=== PATIENT | male | born 2005 | race Caucasian/White ===

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

== ENCOUNTER → 2023-01-30 14:24 | Outpatient (CLI) | payer BC, SELFPAY ==
[2023-01-30 13:41] LABS: Coronavirus 19, PCR Not Detected (NotDetected); Influenza A, PCR Not Detected (NotDetected); Influenza B, PCR Not Detected (NotDetected)
== END ==
PROVIDERS: PCP Internal Medicine; Visit Provider Internal Medicine
DX: J06.9 Acute upper respiratory infection, unspecified (principal)
CPT/HCPCS: 87636

== ENCOUNTER → 2023-02-04 15:08 | Outpatient (CLI) | payer BC, SELFPAY ==
--- NOTE | 2023-02-04 15:12 | XR_ITS ---
FINAL REPORT CLINICAL HISTORY: flank pain, possible renal stone FINDINGS: Flat and upright views of the abdomen were obtained. There is a nonspecific, nonobstructive bowel gas pattern. No free air is identified. There is moderate stool throughout the colon. No abnormal calcifications are seen. No acute osseous abnormality. IMPRESSION: Moderate stool. No abnormal calcifications identified. Reviewed, Interpreted and Dictated by Dima Clements III, MD Transcribed by Nilda Dugan Authenticated and [facility]
== END ==
LOC: RAD 15:09
PROVIDERS: PCP Nurse Practitioner Family; Visit Provider Nurse Practitioner Family
DX: R10.9 Unspecified abdominal pain (principal); R31.9 Hematuria, unspecified; N20.0 Calculus of kidney
CPT/HCPCS: 74019

== ENCOUNTER → 2023-02-04 23:29 | Outpatient (CLI) | payer BC, SELFPAY ==
[2023-02-04 17:22] LABS: Alanine Aminotransferase 80 U/L (12-78); Albumin Level 4.6 g/dl (3.5-5.0); Albumin/Globulin Ratio 1.7 (1.1-1.8); Alkaline Phosphatase 100 U/L (38-126); Anion Gap 15.1 mEq/L (5-15); Aspartate Amino Transferase 43 U/L (17-59); Bilirubin,Total 0.2 mg/dl (0.2-1.3); Blood Urea Nitrogen 22 mg/dl (9-20); Calcium 9.6 mg/dl (8.4-10.2); Carbon Dioxide 27 mmol/L (22.0-30.0); Chloride 105 mmol/L (98-107); Estimated Glomerular Filt Rate 109 ml/min (>60); GFR (African American) 132 ML/MIN (>60); Globulin 2.7 g/dL (1.3-3.2); Glucose 107 mg/dl (74-100); Potassium 4.1 mmoL/L (3.5-5.1); Sodium 143 mmol/L (136-145); Total Protein,Serum 7.3 g/dl (6.3-8.2); Uric Acid 4.9 mg/dl (3.5-8.5)
[2023-02-04 17:28] LABS: C-Reactive Protein 1.4 mg/L (0-4)
[2023-02-04 17:43] LABS: Basophils % 0.6 % (0.1-2.0); Eosinophils # 0.2 K/mm3 (0.0-0.4); Eosinophils % 3.5 % (0.1-12.0); Hematocrit 52.2 % (42.0-52.0); Hemoglobin 16.8 g/dL (14.1-18.0); Lymphocytes # 1.3 K/mm3 (0.7-4.5); Lymphocytes % 21.7 % (10-50); Mean Corpuscular HGB Conc 32.2 g/dL (31.8-35.4); Mean Corpuscular Hemoglobin 29.7 pg (27.0-31.2); Mean Platelet Volume 8.7 fl (7.4-10.4); Monocytes # 0.5 K/mm3 (0.1-1.0); Monocytes % 8.8 % (1.7-9.3); Neutrophils % 65.5 % (37.0-80.0); Platelet Count 229 K/mm3 (142-424); Red Blood Count 5.68 M/mm3 (4.60-6.20); Red Cell Distribution Width 13.7 % (11.5-17.5); White Blood Count 6.1 K/mm3 (4.5-13.0)
== END ==
PROVIDERS: PCP Obstetrics & Gynecology; Visit Provider Nurse Practitioner Family
DX: R10.9 Unspecified abdominal pain (principal); R31.9 Hematuria, unspecified
CPT/HCPCS: 80053; 84550; 85025; 86140; 87086

== ENCOUNTER → 2023-05-02 14:06 | Outpatient (CLI) | payer BC, SELFPAY | PROVIDERS: PCP Nurse Practitioner Family; Visit Provider Nurse Practitioner Family | DX: J02.9 Acute pharyngitis, unspecified (principal) | CPT/HCPCS: 87070 ==

== ENCOUNTER → 2023-05-10 13:22 | Outpatient (CLI) | payer BC, SELFPAY ==
--- NOTE | 2023-05-10 13:23 | US_ITS ---
FINAL REPORT CLINICAL HISTORY: left leg mass FINDINGS: Limited sonographic images of the left lower leg were obtained. No mass or fluid collection is seen at the area of interest. IMPRESSION: No mass or fluid collection. Reviewed, Interpreted and Dictated by Osei Irvin MD Transcribed by Jacqueline Escobar Authenticated and . [facility]
== END ==
LOC: RAD 13:23
PROVIDERS: PCP Nurse Practitioner Family; Visit Provider Nurse Practitioner Family
DX: R22.42 Localized swelling, mass and lump, left lower limb (principal)
CPT/HCPCS: 76882

== ENCOUNTER 2024-02-12 08:40 | Outpatient (CLI) | payer BC, SELFPAY ==
[2024-02-17 07:49] LABS: Oxcarbazepine 42 ug/mL (10-35)
== END 2024-02-12 23:59 | disposition home or self-care (01) ==
LOC: LAB 08:42
PROVIDERS: Psychiatry & Neurology Neurology; PCP Nurse Practitioner Family
DX: R56.9 Unspecified convulsions (principal)
CPT/HCPCS: 36415; 80183

== ENCOUNTER 2024-04-24 08:06 | Emergency (ER) | payer BC, SELFPAY ==
[2024-04-24 08:27] VITALS: BP 142/90; PULSE 96; RESP 18; TEMP 36.9; O2SAT 97; BMI 33.2
--- NOTE | 2024-04-24 08:30 | EXP.UTC ---
Discharge Plan Disposition Patient Disposition: Home, Self-Care Condition: Good Prescriptions Prescriptions: New azithromycin [Zithromax] 250 mg tablet 250 mg PO UD DOSE PK Qty: 6 0RF Rx Instructions: Take two (2) tablets today, then one (1) tablet days #2 thru #5 aihhmgmldtlphyq-zibkufmhl-LE [Bromfed DM] 2-30-10 mg/5 mL Syrup 5 ml PO Q6H PRN (Reason: Cough) Qty: 240 0RF oseltamivir [Tamiflu] 75 mg capsule 75 mg PO BID 5 Days Qty: 10 0RF No Action oxcarbazepine 600 mg tablet 1,200 mg PO .COMPLEX Patient Comments: TAKE 2 TABLETS BY MOUTH IN THE MORNING AND 3 IN THE EVENING Rx Instructions: 1,200 mg orally 2tabs qam and 3 tabs q evening; Referrals Follow up/Referrals: Rhonda Ayers APRN [Primary Care Provider] - See instructions Activity Restrictions/Add. Instructions Additional Instructions/Restrictions: Drink plenty of fluids. Take tylenol or ibuprofen for pain or fever. Take the medications as directed. Follow up with your regular doctor. GO TO THE ER FOR ANY WORSENING SYMPTOMS Clinical Impressions Clinical Impression: Pharyngitis, Acute viral syndrome Instructions Patient Instructions: Sore Throat, DI for Pharyngitis/Tonsillopharyngitis -- Adult Print Language Print Language: Mongolian Discharge ED Provider: Skyler Holder [facility] [place] HPI General Stated complaint: fever, congestion Mode of Arrival: Ambulatory Source of Information: Patient Time Seen by Provider: 04/24/24 08:21 Description of Symptoms (Recalled from Triage Doc. by RN): FEVER, SORE THROAT, CONGESTION, COUGH, BODY ACHES HEENT Symptoms (Recalled from RN notes): Yes Resp Symptoms (Recalled from RN notes): Yes Skin Symptoms (Recalled from RN notes): No MS Symptoms (Recalled from RN notes): No Functional Status (Recalled from RN notes): WNL Related Data Home Medications ?Medication ?Instructions ?Recorded ?Confirmed oxcarbazepine 600 mg tablet 1,200 mg PO .COMPLEX 09/19/22 04/24/24 Previous Rx's ?Medication ?Instructions ?Recorded azithromycin 250 mg tablet 250 mg PO UD DOSE PK #6 tabs 04/24/24 (Zithromax) ugjnzalnpygfhen-acmlzfuislypept-QJ 5 ml PO Q6H PRN Cough #240 mL 04/24/24 2 mg-30 mg-10 mg/5 mL oral syrup (Bromfed DM) oseltamivir 75 mg capsule (Tamiflu) 75 mg PO BID 5 days #10 caps 04/24/24 Allergies Allergy/AdvReac Type Severity Reaction Status Date / Time Egg Derived Allergy Intermediate Verified 06/18/23 11:10 Beta-Blockers AdvReac Unknown Hallucinati Verified 06/18/23 11:10 (Beta-Adrenergic Bloc ng (BETA-BLOCKERS (BETA-ADRENERGIC BLOC) Worker's Comp Is this a Worker's Comp case?: No [facility] Disclaimer: The information contained in this section may have been updated after the patient was seen, as this information can be updated by other users. Medical History Acquired pes planus of both feet Activities involving tennis Avulsion fracture of right ankle Epilepsy Flank pain, acute Gastroenteritis Hematuria History of kidney stones Migraine Renal calculi Sports physical Upper respiratory infection Viral respiratory illness Surgical History H/O wrist surgery Family History Mother Hypertension Social History Smoking Status: Never smoker alcohol intake: never substance use type: denies use current occupational status: student and other adopted: No caregiver/support person: Yes foster care: No household members: family housing: house lives independently: No marital status: single number of children: 0 ROS Obtained: Yes All systems reviewed & no additional complaints except as documented Constitutional Constitutional: Reports chills and Reports fever(s) Eyes Eyes: Denies eye discharge ENT Ears, Nose, Mouth, and Throat: Reports as per HPI Cardiovascular Cardiovascular: Denies chest pain Respiratory Respiratory: Denies chest congestion and Reports cough Gastrointestinal Gastrointestingal: Reports nausea; Denies abdominal pain, constipation, cramping, diarrhea or vomiting Musculoskeletal Musculoskeletal: Denies arthralgias Integumentary/Breasts Skin/Breast: Denies rash Neurologic Neurologic: Denies paresthesias Physical Exam General General appearance: alert and in no apparent distress Head Head exam: atraumatic, normocephalic and normal inspection Eye Eye exam: Present normal appearance, PERRL and EOMI ENT ENT exam: Present mucous membranes moist and normal external ear exam Expanded ENT Exam TM/Canal exam: Bilateral TM: erythema and bulging Nose exam: Absent sinus tenderness Mouth exam: Present normal external inspection; Absent drooling Teeth exam: Present normal inspection Throat exam: Present tonsillar erythema, tonsillomegaly and tonsillar exudate Neck Neck exam: Present normal inspection, full ROM and trachea midline; Absent tenderness, meningismus or lymphadenopathy Chest Chest inspection: Present normal inspection and symmetric chest wall rise; Absent tenderness Respiratory Respiratory exam: Present normal lung sounds bilaterally; Absent respiratory distress, wheezes, stridor or accessory muscle use Cardiovascular Cardiovascular exam: Present regular rate and normal rhythm; Absent systolic murmur or diastolic murmur Abdominal Exam Abdominal exam: Present soft and normal bowel sounds; Absent distention, tenderness, guarding, rebound or rigidity Extremities Exam Extremities exam: Present normal inspection and normal capillary refill; Absent calf tenderness Back Exam Back exam: Present normal inspection and full ROM; Absent tenderness, CVA tenderness (R) or CVA tenderness (L) Neurological Exam Neurological exam: Present alert, oriented X3 and CN II-XII intact Psychiatric Psychiatric exam: Present normal affect and normal mood Skin Skin exam: Present warm, dry, intact and normal color Medical Decision Making Medical Records Medical records reviewed: No I reviewed the patient's medical records. Screening: Per USPSTF and CDC recommendations, given the prevalence of disease in our region, it is our hospital?s policy to screen for HIV and viral Hepatitis for all patients aged 18 and over and those with ongoing risk factors. Krystian Inquiry Pt receiving controlled substance: No Vital Signs: 04/24/24 08:27 Temperature 98.5 F Temperature Source Oral Pulse Rate [Left Radial] 96 H Respiratory Rate 18 Blood Pressure [Left Arm] 142/90 H Blood Pressure Mean [Left Arm] 107 02 Sat by Pulse Oximetry 97 Lab Data Lab results reviewed: Yes I reviewed the patient's lab results. Orders (Tests/Meds): ORDERS Category Date Time Status Rapid PCR Covid and Flu A/B Stat Lab 04/24/24 08:27 Ordered
[2024-04-24 08:31] LABS: Coronavirus 19, PCR Not Detected (NotDetected); Influenza B, PCR Not Detected (NotDetected)
[2024-04-24 08:37] LABS: UTC Strep Screen (Rapid) Negative (Negative)
[2024-04-24 09:04] VITALS: BP 142/90; PULSE 96; RESP 18; TEMP 36.9
[2024-04-24 09:42] LABS: Influenza A, PCR Detected (NotDetected)
== END 2024-04-24 09:06 | disposition home or self-care (01) ==
PROVIDERS: Emergency Provider Nurse Practitioner Family; PCP Nurse Practitioner Family
DX: J02.9 Acute pharyngitis, unspecified (principal); B34.9 Viral infection, unspecified
CPT/HCPCS: 87636; 87880; 99213; G0381

== ENCOUNTER 2025-01-26 10:10 | Outpatient (CLI) | payer BC, SELFPAY ==
--- NOTE | 2025-01-26 10:19 | XR_ITS ---
FINAL REPORT CLINICAL HISTORY: low back pain, fall FINDINGS: LUMBAR SPINE Three views were obtained. There is no acute fracture. The disc spaces are well-preserved. There is no malalignment. IMPRESSION: No acute process. Reviewed, Interpreted and Dictated by Osei Irvin MD Transcribed by Jacqueline Escobar Authenticated and [facility]
--- NOTE | 2025-01-26 10:19 | XR_ITS ---
FINAL REPORT CLINICAL HISTORY: L shoulder pain, fall FINDINGS: LEFT SHOULDER Three views were obtained. There is no fracture or dislocation. The joint spaces appear normal. No soft tissue abnormality is identified. IMPRESSION: No acute process. Reviewed, Interpreted and Dictated by Osei Irvin MD Transcribed by Jacqueline Escobar Authenticated and [facility]
--- OUTSIDE RECORDS SUMMARY | 2025-01-26 10:51 | XMS_ITS | Clinical Summary ---
Author Organization [facility] Address Pending sale to [facility] [place] [address] Care Team Providers Care Vat Washer Name Role Phone Pavan Yen M.D. Primary Care Provider [phone] Source Comments [facility] is fully rolled out with thefollowing exceptions:General Clinical Research [facility] Allergies Active Allergy Reactions Criticality Noted Date Comments beta blockers [Other] Hallucinations 03/04/2019 Medications clonazePAM (KlonoPIN) 1 MG disintegrating tabletIndications: Localization-relat ed focal epilepsy with complex partial seizures Use 1 mg for seizure of 5 minutes or longer or more then 3 seizures in an hour 10 Tab 2 0 Active Misc. Devices (mucosal atomization device) MISC Use as directed. Attach to end of syringe to atomize the midazolam into the nose. 5 Each 5 1 Active needle (disp) (BD HYPODERMIC NEEDLE) 23G X 1-/2 miscellaneous Use as directed. Attach to syringe to withdraw midazolam dose from vial. 10 Each 1 Active OXcarbazepine (TRILEPTAL) 600 MG tablet 1200 mg in am 1800 mg in the evening 150 tablet 11 3 Active naproxen (NAPROSYN) 500 MG tablet TAKE 2 TABLETS BY MOUTH ALONG WITH SPORTS DRINK AT THE ONSET OF HEADACHE. 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 04/03/2019 Hematuria 12/07/2015 Proteinuria 12/07/2015 Flank pain 12/07/2015 Easy bruising 12/07/2015 Crystalluria 12/07/2015 Family history of kidney stones 12/07/2015 Family History Medical History Relation Name Comments Asthma Maternal Grandmother Diabetes Insipidus Maternal Grandmother Anemia Mother Asthma Mother High Blood Pressure Mother Relation Name Status Comments Maternal Grandmother Mother Alive Social History Tobacco Use Types Packs/Day Years Used Date Smoking Tobacco: Never Smokeless Tobacco: Never Tobacco Cessation:Counseling Given: Not Answered Alcohol Use Standard Drinks/Week Comments No 0 (1 standard drink = 0.6 oz pur e alcohol) Intimate Partner Violence Answer Date R ecorded If you are in a relationship , do you feel safe in that relationship? Yes 08/01/2022 If you are in a relationship , do you feel safe in that relationship? Yes 08/01/2022 Financial Resource Strain Answer Date R ecorded Financial benefits problems Not on file 08/26 Trouble paying for things you need Not on file 09/18/2022 Trouble paying for things you need (Other) Not o n file 09/18/2022 Safety and Environment Answer Date Sherif rded Do you have any concerns of physical abuse, sexual abuse, or neglect of your child? No 08/01/2022 Is an adult hurting you or your family? No 08/01/2022 Has someone ever touched you in a sexual way that was not ok with you? No 08/01/2022 Is someone hurting your or your family? No 08/01/2022 Historical abuse worry Not on file If you have firearms in the home, are they all in locked storage AND unloaded? Not on file 08/01/2022 Sex and Gender Information Value Date Recorded Sex Assigned at Not on file Legal Sex Male 3:37 PM EDT Gender Identity Not on file Sexual Orientation Not on file Last Filed Vital Signs Vital Sign Reading Time Taken Comments Blood Pressure 130/75 12/26/2022 12:28 PM EDT Pulse 63 12/26/2022 12:28 PM EDT Temperature 36.4 C (97.5 F) 05/24/2022 9:16 AM EST Respiratory Rate 32 08/01/2022 11:0 4 AM EST Oxygen Saturation 100% 08/01/2022 11: 04 AM EST Inhaled Oxygen Concentration - - Weight 109.7 kg (241 lb 13.5 oz) 2022 12:28 PM EDT Height 183.1 cm (6' 0.09 ) 12/26/2022 1 2:28 PM EDT Body Mass Index 32.72 12/26/2022 12:28 PM EDT Plan of Treatment Health Maintenance Due Date Last Done Comments MMR IMMUNIZATION (1 of 1 - Standard series) 2004 DTAP/Tdap/Td IMMUNIZATION (1 - Tdap) 2010 VARICELLA IMMUNIZATION (1 of 2 - 13+ 2-dose series) 2016 HPV IMMUNIZATION (1 - Male 3-dose series) 2018 MENINGOCOCCAL B VACCINE (1 o f 2 - Standard) 2019 HEPATITIS B IMMUNIZATION (1 of 3 - 19+ 3-dose series) 2022 COVID-19 Vaccine (1 - 2023-2 5 season) 2024 HEPATITIS A IMMUN (OPTIONAL 2-17 YRS) Discontinued 02/27/2018, 07/03/2017 MCV4 IMMUNIZATION Completed 06/23/2020 AMB SEASONAL FLU VACCINE Discontinued HIB IMMUNIZATION Aged Out No longer e ligible based on patient's age to complete this topic IPV IMMUNIZATION Aged Out No longer e ligible based on patient's age to complete this topic PNEUMOCOCCAL IMMUNIZATION Aged Out No longer eligible based on patient's age to complete this topic Respiratory Syncytial Virus (RSV) <20mo Aged Out No longer eligible based on patient's age to complete this topic Insurance TES[employer] QUAN NON-TRADITIONAL ANTHMARIAH QUAN NON-TRADITIONAL ANTHMARIAH BLUE NON-TRADITIONAL Care Teams Vat Washer Relationship Specialty Start Date End Date Pavan Yen M.D. [address] [place], [place] [id number] PCP - General External Medicine 11/25/15
--- OUTSIDE RECORDS SUMMARY | 2025-01-26 10:51 | XMS_ITS | Encounter Summary ---
Author Organization [facility] Address [address] [place] [address] Care Team Providers Care As400 Programmer Analyst Name Role Phone Pavan Yen M.D. Primary Care Provider [phone] Reason for Visit * Reason Onset Date Comments Medication Refill 08/06/2022 Misc. Devices (mucosal atomization device) MISC, naproxen (NAPROSYN) 500 MG tablet Encounter Details Date Type Department Care Team (Late st Contact Info) Description 08/06/2022 Refill [facility] Division of Neurology [address] [place] [id number] Dion Levi M.D. Neurology [address] [place] [address] [address] [place] [address] Medication Refill (Misc. Devices (mucosal atomization device) MISC, naproxen (NAPROSYN) 500 MG tablet) Social History Tobacco Use Types Packs/Day Years Used Date Smoking Tobacco: Never Smokeless Tobacco: Never Alcohol Use Standard Drinks/Week Comments No 0 (1 standard drink = 0.6 oz pur e alcohol) Intimate Partner Violence Answer Date R ecorded If you are in a relationship , do you feel safe in that relationship? Yes 08/01/2022 If you are in a relationship , do you feel safe in that relationship? Yes 08/01/2022 Safety and Environment Answer Date Sherif rded [...] on file Sexual Orientation Not on file documented as of this encounter Miscellaneous Notes * Telephone Encounter - Aliyah Canseco Medical Asst - 08/06/2022 12:06 PM EDT Medication refill request for: Misc. Devices (mucosal atomization device) MISC, naproxen (NAPROSYN)500 MG tablet Last Telehealth Visit: 02/28/2022 with Dion Levi M.D.(office) Last Visit: 02/28/2022; [facility]; DION LEVI; WICHO FU Advised to follow up in: Return in about 6 months (around 08/29/2022). Follow up appointment: No appointment found Note: If patient needs appointment. Please send to JANIE Montes To be filled at: [facility] - [place], [place] - [address] documented in this encounter Plan of Treatment Not on file documented as of this encounter Visit Diagnoses Not on filedocumented in this encounter Care Teams As400 Programmer Analyst Relationship Specialty Start Date End Date Pavan Yen M.D. [address] [place] [address] PCP - General External Medicine 11/25/15 documented as of this encounter
--- OUTSIDE RECORDS SUMMARY | 2025-01-26 10:51 | XMS_ITS | Clinical Summary ---
Author Organization [facility] Address [address] [place] [address] Care Team Providers Care Associate Merchant Name Role Phone Javier Ortiz MD Primary Care Provider [phone] Family History Medical History Relation Name Comments Migraines Maternal Cousin Migraines Mother Migraines Other Relation Name Status Comments Maternal Cousin Mother Other Social History Tobacco Use Types Packs/Day Years Used Date Smoking Tobacco: Never Sex and Gender Information Value Date Recorded Sex Assigned at Not on file Legal Sex Male 8:25 PM EDT Gender Identity Not on file Sexual Orientation Not on file Last Filed Vital Signs Vital Sign Reading Time Taken Comments Blood Pressure - - Pulse - - Temperature - - Respiratory Rate - - Oxygen Saturation - - Inhaled Oxygen Concentration - - Weight 47 kg (103 lb 8.8 oz) 11/16/2014 1:56 PM EDT Height 149.9 cm (4' 11 ) 11/16/2014 1:56 PM EDT Body Mass Index 20.91 11/16/2014 1:56 PM EDT Plan of Treatment Not on file Care Teams Associate Merchant Relationship Specialty Start Date End Date Javier Ortiz MD [address] [facility] [address] [place] [address] PCP - General 10/07/20
--- OUTSIDE RECORDS SUMMARY | 2025-01-26 10:51 | XMS_ITS | Encounter Summary ---
Author Organization [facility] Address [address] [place] [address] Care Team Providers Care Welt Beater Name Role Phone Pavan Yen M.D. Primary Care Provider [phone] Reason for Visit * Reason Comments Medication Refill ibuprofen (MOTRIN) 6 00 MG tablet Encounter Details Date Type Department Care Team (Late st Contact Info) Description 01/09/2017 Refill [facility] Division of Neurology [address] [place] [phone] Jarocho Esposito M.D. Neurology [address] [place] [address] [address] [place] [address] Medication Refill (ibuprofen (MOTRIN) 600 MG tablet) Social History Tobacco Use Types Packs/Day Years Used Date Smoking Tobacco: Never Alcohol Use Standard Drinks/Week Comments No 0 (1 standard drink = 0.6 oz pur e alcohol) Sex and Gender Information Value Date Recorded Sex Assigned at Not on file Legal Sex Male 3:37 PM EDT Gender Identity Not on file Sexual Orientation Not on file documented as of this encounter Miscellaneous Notes * Telephone Encounter - Mery Kirkland Lower In Supervisor - 01/10/2017 8:51 AM EDT Due for a follow up appointment. Medication refill request for: ibuprofen (MOTRIN) 600 MG tablet Medication dose, strength, and quantity verified? yes Last recorded patient weight: Wt Readings from Last 1 Encounters: 06/13/16 : 53.2 kg (74 %, Z= 0.66)* * Growth percentiles are based on [facility] 2-20 Years data. Last Visit: 06/13/2016; [facility]; JAROCHO ESPOSITO; WICHO ARRIAZA HEADACHE CR BIOFEEDBACK Advised to follow up in: 3 months Follow up appointment: No appointment found Action: Refill pended to nurse for review. Pharmacy: [facility] [address] [place] [address] documented in this encounter Plan of Treatment Not on file documented as of this encounter Visit Diagnoses Diagnosis Intractable migraine without aura and without status migrainosus Migraine without aura, with intractable migraine, so stated, without mention of status migrainosus Vitamin D insufficiency Unspecified vitamin D deficiency documented in this encounter Additional Health Concerns Infection Onset Date Last Indicated Resolved Time COVID-19 Rule Out 03/31/2021 03/31/2021 03/31/2021 1:50 PM EDT documented as of this encounter Care Teams Welt Beater Relationship Specialty Start Date End Date Pavan Yen M.D. ALLI: [id number] [address] [place] [address] PCP - General External Medicine 11/25/15 documented as of this encounter
--- OUTSIDE RECORDS SUMMARY | 2025-01-26 10:51 | XMS_ITS | Clinical Summary ---
Author Organization [facility] Address [address] [place] [address] Care Team Providers Care Container Washer Name Role Phone Stefanie Silva MD Primary Care Provider + Source Comments This information has been disclosed to you from confidential records protectedfrom disclosure by state law. You shall make no further disclosure of thisinformation without the specific, written, and informed release of theindividual to whom it pertains, or as otherwise permitted by law. A generalauthorization for the release of medical or other information is not sufficientfor the purposes of therelease of HIV test results or diagnoses. [id number] Allergies Active Allergy Reactions Criticality Noted Date Comments Beta-Blockers (Beta-Adrenergic Blocking Agts) Other (See Comments) 01/16/2024 Hallucinates ' Medications midazolam (NAYZILAM) 5 mg/spray (0.1 mL) SpryIndications :Seizures (CMS-HCC) Apply 1 spray (5 mg total) in one nostril once for 1 dose. Use 1 spray in 1 nostril for 1 dose for a seizure >5 minute or >2 seizures in 1 day 2 squeeze btl 05/22/2024 Active OXcarbazepine (TRILEPTAL) 600 MG tabletIndicatio ns:Seizures (CMS-HCC) Take 2 tablets in the morning and 3 tablets at bedtime. 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 No 03/17 Assistance needed for: Not on file 4 Yearly Questionnaire Answer Date Record ed Do you need any assistance w ith obtaining housing, meals, medication, transportation or medical equipment? No 03/17 Assistance needed for: Not on file Yearly Questionnaire Answer Date Record ed Do you need any assistance w ith obtaining housing, meals, medication, transportation or medical equipment? No 03/17 Assistance needed for: Not on file Sex and Gender Information Value Date Recorded Sex Assigned at Not on file Legal Sex Male 2:57 PM EDT Gender Identity Not on file Sexual Orientation Not on file Last Filed Vital Signs Vital Sign Reading Time Taken Comments Blood Pressure 134/79 03/17/2024 11:40 AM EDT Pulse 76 03/17/2024 11:40 AM EDT Temperature - - Respiratory Rate 18 03/17/2024 11:40 AM EDT Oxygen Saturation 98% 01/17/2024 12:01 PM EDT Inhaled Oxygen Concentration 98% 01/17/2024 1 2:01 PM EDT Weight 119.3 kg (263 lb) 03/17/2024 11:40 AM EDT Height 190.5 cm (6' 3 ) 03/17/2024 11:40 AM EDT Body Mass Index 32.87 03/17/2024 11:40 AM EDT Plan of Treatment Health Maintenance Due Date Last Done Comments Diabetes Screening 2003 Hepatitis C Screening (MyChart) 2003 Pediatric Hearing Test 2014 Immunization: HPV (1 - Male 3-dose series) 2018 Immunization: Meningococcal B (1 of 2 - Standard) 2019 HIV Screening 2021 Immunization: DTaP/Tdap/Td ( 1 - Tdap) 2022 Immunization: Hepatitis B (1 of 3 - 19+ 3-dose series) 2022 Immunization: COVID-19 ( - 2023- season) 2025 Immunization: Influenza (MyC alston) (#1) 2025 Depression Screening 03/17/2025 03/17/2024 Immunization: Meningococcal ACWY Completed 06/23/19 21 Immunization: Pneumococcal Aged Out N o longer eligible based on patient's age to complete this topic Insurance Care Teams Container Washer Relationship Specialty Start Date End Date Stefanie Silva MD [address] [place] [address] PCP - General Neurology 01/17/24
== END 2025-01-26 23:59 | disposition home or self-care (01) ==
LOC: RAD 10:12
PROVIDERS: PCP Nurse Practitioner Family; Visit Provider Student in an Organized Health Care Education/Training Program
DX: M25.512 Pain in left shoulder (principal); M54.50 Low back pain, unspecified; W19.XXXA Unspecified fall, initial encounter
CPT/HCPCS: 72100; 73030

== ENCOUNTER 2025-03-22 10:17 | Emergency (ER) | payer BC, SELFPAY ==
--- OUTSIDE RECORDS SUMMARY | 2025-03-10 10:00 | XMS_ITS | Encounter Summary ---
Author Organization [facility] Address [address] [place] [id number] Care Team Providers Care Facility Operations Manager Name Role Phone Stefanie Silva MD Primary Care Provider + Source Comments This information has been disclosed to you from confidential records protectfrom disclosure by state law. You shall make no further disclosure of thisinformation without the specific, written, and informed release of theindividual to whom it pertains, or as otherwise permitted by law. A generalauthorization for the release of medical or other information is not sufficientfor the purposes of the release of HIV test results or diagnoses. [id number] Health Encounter Details Date Type Department Care Team (Late st Contact Info) Description 03/10/2025 10:00 AM EDT Office Visit [facility] [address] [facility] [address] [place] [id number] Dolores Bowen MD [address] [facility] [place] [id number] Seizures (CMS-HCC) (Primary Dx) Social History Tobacco Use Types Packs/Day Years Used Date Smoking Tobacco: Never Smokeless Tobacco: Never Alcohol Use Standard Drinks/Week Comments Never 0 (1 standard drink = 0.6 oz pur e alcohol) PHQ-2 Answer Date Recorded PHQ-2 Total Score 0 03/10/2025 Yearly Questionnaire Answer Date Record ed Do you need any assistance w ith obtaining housing, meals, medication, transportation or medical equipment? No 03/17 Assistance needed for: Not on file 10/22/202 4 Yearly Questionnaire Answer Date Record ed [...] on file documented as of this encounter Last Filed Vital Signs Vital Sign Reading Time Taken Comments Blood Pressure 145/89 03/10/2025 9:52 AM EDT Pulse 79 03/10/2025 9:52 AM EDT Temperature - - Respiratory Rate - - Oxygen Saturation 98% 03/10/2025 9:52 AM EDT Inhaled Oxygen Concentration 98% 03/10/2025 9 :52 AM EDT Weight 123.8 kg (273 lb) 03/10/2025 9:52 AM EDT Height 188 cm (6' 2 ) 03/10/2025 9:52 AM EDT Body Mass Index 35.05 03/10/2025 9:52 AM EDT documented in this encounter Progress Notes * Dolores Bowen MD - 03/10/2025 10:00 AM EDT Subjective Patient ID: Isaias Toscano is a 19 y.o. male. HPI 18 yo RH man previously seen at [facility]. Always had migraines, but then for years his mom noted that he would have episodes of starting, patient would describe a spinnnig sensation. At times with these he would say that he had trouble seeing. They saw a neurologist at and placed on elavil for migraines. He had an EEG at the local hospital at age 7/8, was normal. Was being treated for migraines but then when he was 13 yo he had first GTC. Had had a couple of weeks with spells, his arm woulddraw up, she thinks left arm, some DEBI but not consistent, treated for allergies. Had a buildup of these spells, until GTC. Was in the car with parents, had GTC with head turn, LOC. No TB or UI at that time. Went to local hospital near where they were, [facility], was taken there in follow up. Had EEG and MRI at that time, were told that MRI was normal but EEG was abnormal. Started on OXC. Kept increasing dose for the smaller episodes. Had more issues when he wasunder more stress such as start of school etc. Had second GTC November 2023, driving home at night with parents, he was acting weird, asked his mom todrive because he was having an aura. Got home, ate and got ready for bed, and then was walking around his room, laid down, said he did not feel well, started having hallucinations which is at times aprecursor to his seizures, fell to floor, did have UI at that time. Gave nayzilam but they are not sure if it helped. Prolonged postictal period, about an hour before he was back at baseline. Seizure description: aura of visual white light in left field, feel hot, at times has a hallucination that something is holding onto his head (not consistent), sometimes cannot see, and may or may not have DEBI. Mom thinks she may have abnormal mouth movements, but patient himself does not recall. Risk Factors: no family history of seizures, no febrile seizures. Had a fall at age 1 fell out of his stroller could have had a concussion but they are not sure. Takes OXC 900-1200 mg, does not report any major side effects. Current HPI 03/17/24 At his last visit, OXC was increased from 1200/1800 to 1800/1800, his level was a bit high and the decision was made to return to his previous dose 1200/1800, this occurred ~2 weeks ago. He says he feels good at this dose, no side effects. His last seizure was November 2023. OV Feb 2025: Portions of this note have been copied forward but reviewed in their entirety and are accurate to date Since last visit, no seizures reported. Last sz November 2023. Had briefly increased meds but not tolerated so decreased again. Mom states seizure was due to being very [place] the [place] and then flashing lights which is always a trigger for him. Histories: He has a past medical history of Seizures ([facility]). He has a past surgical history that includes broke arm . His family history is not on file. He reports that he has never smoked. He has never used smokeless tobacco. He reports that he does not drink alcohol and does not use drugs. Review of Systems Constitutional: Negative for fever, chills, fatigue, activity change, appetite change and diaphoresis. Skin: Negative for rash, color change, pallor and wound. HENT: Negative for facial swelling, neck pain, neck stiffness, ear discharge, hearing loss, ear pain, tinnitus, nosebleeds, congestion, rhinorrhea, postnasal drip, sneezing, sinus pressure, dental problem, drooling, mouth sores, sore throat, trouble swallowing and voice change. Eyes: Negative for discharge, itching, pain, redness, photophobia and visual disturbance. Cardiovascular: Negative for chest pain and palpitations. Respiratory: Negative for shortness of breath, wheezing, apnea, chest tightness, choking, cough andstridor. Gastrointestinal: Negative for abdominal pain, vomiting, diarrhea, constipation, blood in stool, abdominal distention, anal bleeding, nausea and rectal pain. Genitourinary: Negative for difficulty urinating, dysuria, enuresis, flank pain, frequency and urgency. Hematologic: Negative for bruises/bleeds easily. Musculoskeletal: Positive for back pain. Negative for arthralgias, gait problem, joint swelling andmyalgias. Psychiatric/Behavioral: Negative for nervous/anxious, agitation, behavioral problems, confusion, decreased concentration, dysphoric mood, hallucinations, hyperactive, self-injury, sleep disturbance and suicidal ideas. Neurological: Positive for headaches. Negative for seizures, syncope, dizziness, facial asymmetry, light-headedness, numbness, speech difficulty, tremors and weakness. 14 point ROS was negative except for what is reported in HPI Allergies: Beta-blockers (beta-adrenergic blocking agts) Medications: Outpatient Encounter Medications as of 03/10/2025 Medication Sig Dispense Refill OXcarbazepine (TRILEPTAL) 600 MG tablet Take 2 tablets in the morning and 3 tablets at bedtime. 450tablet 1 midazolam (NAYZILAM) 5 mg/spray (0.1 mL) [place] Apply 1 spray (5 mg total) in one nostril once for 1 dose. Use 1 spray in 1 nostril for 1 dose for a seizure >5 minute or >2 seizures in 1 day 2 squeeze btl 0 No facility-administered encounter medications on file as of 03/10/2025. Objective Blood pressure 145/89, pulse 79, height 6' 2 (1.88 m), weight (!) 273 lb (123.8 kg), SpO2 98%. Physical Exam: Constitutional: Oriented to person, place, and time. Appears well-developed and well-nourished. Head: Normocephalic and atraumatic. Eyes: EOM are normal. No scleral icterus. Pulmonary/Chest: Effort normal. Skin: No rash Musculoskeletal: Exhibits no edema. ROM is normal Neurological: Moves all ext equally. No tremor or ataxia. Psychiatric: Speech is normal and behavior is normal. Judgment and thought content normal. No depression or anxiety noted Prior Diagnostic Testing: MRI: (2020): normal EEG (2020): reported as normal May 2022: 24 hour video EEG: reported as normal Jan 2022: During photic stimulation at frequencies of 7 Hz and 9 Hz a photoparoxysmal response was seen with moderate amplitude spike waves maximally seen in the right temporo-occipital head region. These discharges outlasted the period of photic stimulation by a few seconds EEG (2018): INTERICTAL: No focal slowing was seen. Intermittent isolated moderate amplitude spike-waves complexes were seen in the right temporal head region with a field extending to both occipital regions. ICTAL: During 7 Hz photic stimulation, the patient had an electroclinical seizure characterized by slight head turn to the right with rhythmic head and upper body jerking lasting about 1 minute. The EEG was characterized by low amplitude beta activity seen in the right temporo-occipital region with rapid spread to the occipital regions then diffusely bilaterally and evolved into higher amplitude alpha then theta activity towards the end of the seizure. 04/16/2019 15:49: Rhythmic low voltage beta activity in the right occipital head region evolved to rhythmic 8 hz spike and wave in the right occipital head region with spread to the left posterior quadrant and right posterior quadrant. Seizure lasted 30 seconds. Clinically, the patient reported a visual hallucination. He said I'm having one . He then had behavioral arrest and subtle side to side head movement, with eyes pulling slightly to left. IMPRESSION: This was an abnormal EEG for age. Wakefulness, N1 sleep and N2 sleep were recorded. Epileptiform discharges were seen in the right temporal head region(s). These are focal interictal epileptiform abnormalities that have a high correlation with seizures that are partial in onset and may indicate their site of origin. Electroclinical seizure was recorded during photic stimulation. 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 Has been well controlled on OXC monotherapy but had a breakthrough seizure and GTC in November 2023. His OXC was briefly increased after this but his level was high and his dose was reduced back to the previous dose. Theydo not want to add or change meds at this time, he is a john in college and busy so wants to keepit a;; the same. PLAN: Continue OXC 1200/1800 2. Keep track of any auras/seizures and report to office 3. Discussed EMU with him in the past if seizures continue 4 Return in one year Check labs including levels Refilled meds today This note was copied forward from the note written by Sumaya on Feb 2024. I have reviewed and updated the history, physical exam, data, assessment and plan of the note so that it reflects the evaluation and management of the patient on Mar 10, 2025. I also spent 25 minutes on the date of service on [id number] activities, such as: ?? preparing to see the patient (e.g., review of tests) ?? obtaining and/or reviewing separately obtained history ?? counseling and educating the family/caregiver ?? ordering medications, tests, or procedures ?? referring and communicating with other health mall plant caretaker (when not separately reported) ?? documenting clinical information in the electronic or other health record ?? independently interpreting results (not separately reported) and communicating results to the family/caregiver ?? care coordination (not separately reported) Medical Decision Making: review/order clinical lab tests, reviewed old lab tests, reviewed EMG/EEG results, review/order radiology tests, review/order other diagnostic or tx interventions, obtain old records or history from another person, review and summarization of old records, independent review of data - e.g. image - sp ecimen, Permanent chart problem/surgery list reviewed, Permanent chart chronic med/allergy list reviewed, Permanent chart social/family history reviewed, and PFSH and Health Screening (pt reported) reviewed Patient Education: Patient advised: adhere to medication regimen, avoid alcohol, exercise > 20 minutes 3xs per week, and practice good sleep hygiene Verbal information and/or pamphlet/literature given to patient: Yes Risks & Benefits: Risks, benefits and treatment options discussed with patient. Is visit primarily counseling/coordination? Yes Risk of complications: high Driving Risk: Having a seizure while driving puts that patient at risk for injuring themselves, or others. If a patient drives while having uncontrolled seizures, they may be held liable for injuriesto others. I recommended that the patient not drive until they have been seizure free for 3 Months. Epilepsy Monitoring: If the patient fails reasonable trials of a certain number of medications theymay be referred for further evaluation in the epilepsy monitoring unit to better characterize his/her seizures. Epilepsy patient reported outcomes Seizure frequency Patient reported seizure frequency: (Patient-Rptd) F. 6 to 12 months ago Seizure frequency in the past 4 weeks: Does patient track seizures? (Patient-Rptd) No Methods used to track seizures: Barriers to medication adherence? (Patient-Rptd) No List of barriers: Mood screening NDDI-E Score: (Patient-Rptd) (P) 7 VENKATESH-7 Score: (Patient-Rptd) (P) 0 Recent antiepileptic drug levels No results found for: PHENYTOIN , CBMZ , VPAT , VALPROATE , LAMOTRIGINE , PHENOBARBITA , TOPIRAMATE , OXCARB , GABAPENTIN , ZONISAMIDE , LACOSAMIDE , LEVETIRACETA , PRIMIDONE , BRIVARACETAM documented in this encounter Plan of Treatment Scheduled Orders Name Type Priority Associated Diagnoses Orde r Schedule Oxcarbazepine level Lab Routine Seizures ([facility]) 1 Occurrences starting 03/10/2025 until 09/22/2025 Renal Function Panel w/EGFR Lab Routine Seizures ([facility]) 1 Occurrences starting 03/10/2025 until 09/22/2025 documented as of this encounter Visit Diagnoses Diagnosis Seizures ([facility])- Primary Other convulsions documented in this encounter Care Teams Facility Operations Manager Relationship Specialty Start Date End Date Stefanie Silva MD [address] [place] [address] PCP - General Neurology 01/17/24 documented as of this encounter
[2025-03-22 10:18] VITALS: BP 152/94; PULSE 90; RESP 18; TEMP 36.7; O2SAT 100; BMI 31.2
--- NOTE | 2025-03-22 10:27 | US_ITS ---
FINAL REPORT CLINICAL HISTORY: Postrandial RUQ pain, nausea FINDINGS: Sonographic images of the right upper quadrant were obtained. The pancreas is obscured.The liver has an unremarkable appearance.The gallbladder appears normal without evidence of gallstones.There is no evidence of biliary ductal dilatation.The common duct measures 3 mm. Limited images of the right kidney are unremarkable. IMPRESSION: Unremarkable right upper quadrant ultrasound. Reviewed, Interpreted and Dictated by Osei Irvin MD Transcribed by Cesia Coles Authenticated and . [facility]
--- NOTE | 2025-03-22 10:27 | XR_ITS ---
FINAL REPORT TECHNIQUE: Chest PA & Lateral CLINICAL HISTORY: Shortness of breath COMPARISON: None FINDINGS: 2 views of the chest were performed. The heart size is normal. The mediastinum is within normal limits. There is no acute cardiopulmonary process. There are no pleural effusions. There is no pneumothorax. The bony thorax appears intact. IMPRESSION: No acute cardiopulmonary process. Reviewed, Interpreted and Dictated by Osei Irvin MD Transcribed by Cesia Coles Authenticated and [facility]
--- NOTE | 2025-03-22 10:28 | PC.NURSE ---
DR LU AT BEDSIDE
--- NOTE | 2025-03-22 10:30 | ED_ITS ---
Discharge Plan Disposition Patient Disposition: Home, Self-Care Prescriptions Prescriptions: New famotidine [Pepcid] 20 mg tablet 20 mg PO DAILY Qty: 30 0RF No Action oxcarbazepine 600 mg tablet 1,200 mg PO .COMPLEX Patient Comments: TAKE 2 TABLETS BY MOUTH IN THE MORNING AND 3 IN THE EVENING Rx Instructions: 1,200 mg orally 2tabs qam and 3 tabs q evening; ibuprofen 800 mg tablet 800 mg PO Q8H Qty: 30 0RF Referrals Follow up/Referrals: Rhonda Ayers APRN [Primary Care Provider, Family Practice] - See instructions Activity Restrictions/Add. Instructions Additional Instructions/Restrictions: Your workup today shows no issues with the gallbladder. You have a very small amount of blood in your urine. Your symptoms are likely related to acid reflux and I am prescribing a course of Pepcid to help with this. I do encourage you to follow-up with your primary care doctor to ensure that your symptoms are improving and they can recheck your urine for any evidence of blood. If you develop any new or worsening symptoms, or if you become concerned for your health for any reason, return to the emergency department for evaluation Clinical Impressions Clinical Impression: Abdominal pain, epigastric, Hematuria Instructions Patient Instructions: DI for Acute Abdominal Pain Print Language Print Language: Ukrainian Discharge ED Provider: Raj Reyes Adult HPI General Chief complaint: Abdominal Pain Stated complaint: Pain in mid abd/rib area Time Seen by Provider: 03/22/25 10:21 Mode of Arrival: Ambulatory Source of Information: Patient Limitations: No Limitations History of Present Illness HPI narrative: Isaias Toscano is a 19y male with a history of epilepsy on oxcarbazepine who presents to the emergency department for complaints of intermittent, epigastric and right upper quadrant abdominal pain is usually worsened while eating since of last week. Patient states that while eating, he developed sharp pain in the middle and right upper part of his abdomen. He denies any vomiting with it but does report some nausea. He states that also laying down and certain positions can make the pain worse. He has no known gallbladder issues. He has no abdominal surgeries. He denies any dysuria or hematuria. He does report a history of kidney stones. He does report some shortness of breath since these symptoms began but denies any cardiac history. He denies any cough, fever, diarrhea or constipation. Related Data Home Medications ?Medication ?Instructions ?Recorded ?Confirmed oxcarbazepine 600 mg tablet 1,200 mg PO .COMPLEX 09/1901/27/25 Previous Rx's ?Medication ?Instructions ?Recorded ibuprofen 800 mg tablet 800 mg PO Q8H #30 tabs 01/26 famotidine 20 mg tablet (Pepcid) 20 mg PO DAILY #30 ta bs 03/22/25 Allergies Allergy/AdvReac Type Severity Reaction Status Date / Time Egg Derived Allergy Intermediate Verified 01/27/25 12:00 Beta-Blockers AdvReac Unknown Hallucinati Verified 01/27/25 12:00 (Beta-Adrenergic Bloc ng (BETA-BLOCKERS (BETA-ADRENERGIC BLOC) PFSH [facility] Disclaimer: The information contained in this section may have been updated after the patient was seen, as this information can be updated by other users. Medical History (Updated 03/22/25 @ 12:41 by Raj Reyes MD) URI (upper respiratory infection) Viral respiratory illness Renal calculi Flank pain, acute Upper respiratory infection Gastroenteritis Sports physical Acquired pes planus of both feet Activities involving tennis Avulsion fracture of right ankle Hematuria Epilepsy History of kidney stones Migraine Surgical History H/O wrist surgery Family History Mother Hypertension Social History Smoking Status: Never smoker alcohol intake: never substance use type: denies use current occupational status: student and other Travel in the last 8 weeks?: None adopted: No caregiver/support person: Yes foster care: No household members: family housing: house lives independently: No marital status: single number of children: 0 Have you lived/traveled outside US in past 30 days?: No Contact w/someone who lives/traveled outside US past 30 days?: No Exposure to someone with infectious disease in past 14 days?: No Do you have a fever (greater than 100.4 F or 38 C)?: No Have you tested positive for COVID-19?: No Exposed to someone with COVID-19 in past 14 days?: No Do you have a sore throat?: No Do you have a cough?: No Do you have any weakness?: No Do you have any diarrhea?: No Are you experiencing any unusual bleeding?: No Do you have any muscle aches/pain?: No Do you have any abdominal pain?: No Are you experiencing loss of taste or smell?: No Other Medical History Have you received the Flu Vaccine for this season: No Have you received the Pneumonia Vaccine: No ROS Obtained: Yes Systems reviewed as appropriate & no additional complaints except as documented Physical Exam General General appearance: alert and in no apparent distress Head Head exam: atraumatic Eye Eye exam: Present normal appearance ENT ENT exam: Present normal external ear exam Neck Neck exam: Present full ROM Chest Chest inspection: Present symmetric chest wall rise Respiratory Respiratory exam: Present normal lung sounds bilaterally; Absent respiratory distress, wheezes or stridor Cardiovascular Cardiovascular exam: Present regular rate and normal rhythm Abdominal Exam Abdominal exam: Present soft, tenderness (epigastric and RUQ without guarding or rebound) and Grullon's sign; Absent guarding or rigidity exam: Present deferred Extremities Exam Extremities exam: Present normal inspection Back Exam Back exam: Present normal inspection Neurological Exam Neurological exam: Present alert and oriented X3 Psychiatric Psychiatric exam: Present normal affect Skin Skin exam: Present warm and dry Medical Decision Making Medical Records Screening: Per USPSTF and CDC recommendations, given the prevalence of disease in our region, it is our hospital?s policy to screen for HIV and viral Hepatitis for all patients aged 18 and over and those with ongoing risk factors. Krystian Inquiry Pt receiving controlled substance: No Vital Signs: 03/22/25 10:18 Temperature 98.0 F Temperature Source Oral Pulse Rate [Radial] 90 Respiratory Rate 18 Blood Pressure [Left Arm] 152/94 H Blood Pressure Mean [Left Arm] 113 Blood Pressure Source [Left Arm] Automatic Cuff Blood Pressure Position [Left Arm] Sitting 02 Sat by Pulse Oximetry 100 Oxygen Delivery Method Room Air Lab Data Lab Results 03/22/25 10:27: Urine Color Yellow, Urine Appearance Clear, Urine pH 6.0, Ur Specific [place] 1.025, Urine Protein Trace, Urine Glucose (UA) Negative, Urine Ketones Negative, Urine Blood 1+ A, Urine Nitrate Negative, Urine Bilirubin Negative, Urine Urobilinogen 0.2, Ur Leukocyte Esterase Negative, Urine RBC Occasional, Urine WBC None, Ur Squamous Epith Cells None, Urine Bacteria None 03/22/25 10:30: WBC 6.5, RBC 5.06, Hgb 15.2, Hct 44.8, MCV 88.5, MCH 30.0, MCHC 33.9, RDW 12.8, Plt Count 201, MPV 10.6 H, Neut % (Auto) 71.4, Lymph % (Auto) 15.9, Dickinson % (Auto) 9.6 H, Eos % (Auto) 1.8, Baso % (Auto) 1.1, Neut # (Auto) 4.6, Lymph # (Auto) 1.0, Dickinson # (Auto) 0.6, Eos # (Auto) 0.1, Baso # (Auto) 0.1, Sodium 136, Potassium 4.0, Chloride 102, Carbon Dioxide 30, Anion Gap 8.0, BUN 14, Creatinine 0.90, Estimated Creat Clear 208, Estimated GFR 107, Est GFR ( Amer) 129, Glucose 101 H, Lactate 1.1, Calcium 9.1, Total Bilirubin 0.5, AST 30, ALT 38, Alkaline Phosphatase 110, Troponin I < 0.01, C-Reactive Protein 25.9 H, Total Protein 7.3, Albumin 3.6, Globulin 3.7 H, Albumin/Globulin Ratio 1.0 L, Lipase 117, HIV Ag/Ab Combo Qual Negative 03/22/25 10:30 03/22/25 10:30 Orders (Tests/Meds): ORDERS Category Date Time Status US RUQ [US abdomen limited] Stat Exams 03/22/25 10:27 Completed XR chest 2V Stat Exams 03/22/25 10:27 Completed CBC w/Auto Diff [Complete Blood Count Auto Diff] Stat Lab 03/22/25 10:30 Completed CMP [Comprehensive Metabolic Panel] Stat Lab 03/22/25 10:30 Completed CRP [C-Reactive Protein] Stat Lab 03/22/25 10:30 Completed HIV Combo Stat Lab 03/22/25 10:30 Completed Hepatitis C Ab Qual. W/ RFX Stat Lab 03/22/25 10:30 Received Lactic Acid Stat Lab 03/22/25 10:30 Completed Lipase Stat Lab 03/22/25 10:30 Completed Troponin I Q3H Lab 03/22/25 13:30 Ordered Troponin I Q3H Lab 03/22/25 16:30 Ordered Troponin I Stat Lab 03/22/25 10:30 Completed UA [Urinalysis and Microscopic] Stat Lab 03/22/25 10:27 Completed EKG Request [ECG Request] Stat Y 03/22/25 10:27 Ordered ECG Data Tracing #1: I reviewed this ECG and interpreted as documented below: Normal sinus rhythm. No ST elevation or depression. QTc normal at 382. Isolated inverted T wave in lead III Medical Decision Narrative: Isaias Toscano is a 19y male with a history of epilepsy on oxcarbazepine who presents to the emergency department for complaints of intermittent, epigastric and right upper quadrant abdominal pain is usually worsened while eating. Patient states that while eating, he developed sharp pain in the middle and right upper part of his abdomen. He denies any vomiting with it but does report some nausea. He states that also laying down and certain positions can make the pain worse. He has no known gallbladder issues. He has no abdominal surgeries. He denies any dysuria or hematuria. He does report a history of kidney stones. He does report some shortness of breath since these symptoms began but denies any cardiac history. He denies any cough, fever, diarrhea or constipation. On arrival, patient is hemodynamically stable, in no acute distress, breathing comfortably on room air, afebrile. On exam, patient has tenderness without guarding in the epigastric and right upper quadrants. Positive tenderness at Grullon's point. Cardiopulmonary exam without murmurs or rubs. No wheezing, rales or rhonchi. Differential diagnosis includes, but is not limited to: Acute cholecystitis, choledocholithiasis, gastritis, acute pancreatitis, GERD, ACS, pericarditis, pneumonia, pneumothorax, among others. The most morbid conditions were considered and workup was based on these. Workup in the emergency department included: Right upper quadrant ultrasound, chest x-ray, EKG, CBC with differential, CMP, lactic acid, lipase, urinalysis, troponin Patient was offered antiemetic medications, however, patient states that he is currently not symptomatic and not nauseated. Workup showed no leukocytosis, no anemia, platelets normal, CMP unremarkable nonactionable with normal liver enzymes and bilirubin. Initial troponin less than 0.01. CRP is mildly elevated at 25.9. Lipase normal at 117. Urinalysis shows occasional RBCs but no evidence of infection. EKG without evidence of ischemia. See interpretation above. Right upper quadrant ultrasound shows no gallstones, sludge or evidence of cholecystitis. See radiology report for details. On reassessment, patient is in stable condition. I feel he symptomatology is most likely related to acid reflux or gastritis given his mildly elevated CRP. I will prescribe Pepcid to help with his symptoms and have him follow-up with his primary care doctor regarding his symptoms and mild hematuria. Return precautions were given. All questions were answered. He demonstrated understanding and was in agreement this plan. He was then discharged from the emergency department in stable condition. Critical Care Critical Care Time Critical Care Time: No
[2025-03-22 10:34] LABS: Microscopic, Urine URINE MICROSCOPIC (MICROSCOPIC)
--- OUTSIDE RECORDS SUMMARY | 2025-03-22 10:37 | XMS_ITS | Encounter Summary ---
Author Organization [facility] Address [address] [place] [address] Care Team Providers Care Oven Tender Name Role Phone Stefanie Silva MD Primary [...] release of HIV test results or diagnoses. [id number] Health Encounter Details Date Type Department Care Team (Late st Contact Info) Description 03/11/2025 Refill [facility] Neurology at [facility] [address] [place] [address] Dolores Bowen MD [address] [place] [address] [place] [address] Seizures ([facility]) Social History Tobacco Use Types Packs/Day Years [...] Assistance needed for: Not on file 4 Sex and Gender Information Value Date Recorded Sex Assigned at Not on file Legal Sex Male 2:57 PM EDT Gender Identity Not on file Sexual Orientation Not on file documented as of this encounter Miscellaneous Notes * Telephone Encounter - Sue Mackey MA - 03/11/2025 2:35 PM EDT Script being re sent,Paper clarification request came through FAX stating script needs quantity of 2 per package REFILL - 2 squeeze bottle SUPPLY, with 1 [facility] - [place], [place] - [address] [place] [id number] Last Office Visit: 03/10/2025 Dolores Bowen MD Next Office Visit: 03/15/26 Medication: Nayzilam 5mg/0.1mL SUE MACKEY MA 03/11/2025 documented in this encounter Plan of Treatment Not on file documented as of this encounter Visit Diagnoses Diagnosis Seizures ([facility]) Other convulsions documented in this encounter Care Teams Oven Tender Relationship Specialty Start Date End Date Stefanie Silva MD [address] [place] [address] PCP - General Neurology 01/17/24 documented as of this encounter
--- OUTSIDE RECORDS SUMMARY | 2025-03-22 10:37 | XMS_ITS | Encounter Summary ---
Author Organization [facility] Address [address] [place] [address] Care Team Providers Care Shipping Coordinator Name Role Phone Stefanie Silva MD Primary [...] release of HIV test results or diagnoses. [id number] Health Encounter Details Date Type Department Care Team (Late st Contact Info) Description 03/09/2025 Telephone [facility] Neurology at [facility] [address] [facility] [address] [place] [address] Dolores Bowen MD [address] [place] [address] [place] [address] Social History Tobacco Use Types Packs/Day Years [...] encounter Miscellaneous Notes * Telephone Encounter - Magalis Mackey MA - 03/09/2025 2:26 PM EDT Patient was called to confirm appointment.Voicemail was left as a reminder call to remind patient they have a 10am appointment in [place] with MD documented in this encounter Plan of Treatment Not on file documented as of this encounter Visit Diagnoses Not on filedocumented in this encounter Care Teams Shipping Coordinator Relationship Specialty Start Date End Date Stefanie Silva MD [address] [place] [address] PCP - General Neurology 01/17/24 documented as of this encounter
--- OUTSIDE RECORDS SUMMARY | 2025-03-22 10:37 | XMS_ITS | Clinical Summary ---
Author Organization [facility] Address [address] [place] [address] Care Team Providers Care Customer Account Executive Name Role Phone Javier Ortiz MD Primary Care Provider [phone] Family History Medical History Relation Name Comments [...] of Treatment Not on file Care Teams Customer Account Executive Relationship Specialty Start Date End Date Javier Ortiz MD [address] [facility] [address] [place] [address] PCP - General 10/07/20
--- OUTSIDE RECORDS SUMMARY | 2025-03-22 10:37 | XMS_ITS | Clinical Summary ---
Author Organization [facility] Address [address] [place] [address] Care Team Providers Care Packer Denture Name Role Phone Stefanie Silva MD Primary [...] therelease of HIV test results or diagnoses. [id number] Allergies Active Allergy Reactions Criticality Noted Date Comments Beta-Blockers (Beta-Adrenergic Blocking Agts) Other (See Comments) 01/16/2024 Hallucinates ' Medications OXcarbazepine (TRILEPTAL) 600 MG tabletIndicatio ns:Seizures (CMS-HCC) Take 2 tablets in the morning and 3 tablets at bedtime. 450 tablet 3 5 Active midazolam (NAYZILAM) 5 mg/spray (0.1 mL) SpryIndications :Seizures (CMS-HCC) Use 1 spray in 1 nostril for 1 dose for a seizure >5 minute or >2 seizures in 1 day 2 squeeze btl 1 5 Active midazolam (NAYZILAM) 5 mg/spray (0.1 mL) SpryIndications :Seizures (CMS-HCC) Apply 1 spray (5 mg total) in one nostril once for 1 dose. Use 1 spray in 1 nostril for 1 dose for a seizure >5 minute or >2 seizures in 1 day 2 squeeze btl 4 03/10/20 Discontinu ed(Refill / Reorder) OXcarbazepine (TRILEPTAL) 600 MG tabletIndicatio ns:Seizures (CMS-HCC) Take 2 tablets in the morning and 3 tablets at bedtime. 450 tablet 1 5 03/10/20 25 Discontinu ed(Refill / Reorder) midazolam (NAYZILAM) 5 mg/spray (0.1 mL) SpryIndications :Seizures (CMS-HCC) Apply 1 spray (5 mg total) in one nostril once for 1 dose. 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 07/01/2020 Intractable migraine with aura without status mi grainosus 07/24/2019 Encounters Date Type Department Care Team Description 03/12/2025 Telephone [facility] Neurology at [facility] [address] [place] [address] [address] [place] [address] Dolores Bowen MD 03/11/2025 Refill [facility] Neurology at [facility] [address] [employer] [address] [place] [address] Dolores Bowen MD Seizures ([facility]) 03/10/2025 10:00 AM EDT Office Visit [facility] Neurology at [facility] [address] [employer] [address] [place] [address] Dolores Bowen MD Seizures ([facility]) (Primary Dx) 03/09/2025 Telephone [facility] Neurology at [facility] [address] [place] [address] Dolores Bowen MD from Last 3 Months Social History Tobacco Use Types Packs/Day Years [...] 03/17/2024 11:40 AM EDT Oxygen Saturation 98% 03/10/2025 9:52 AM EDT Inhaled Oxygen Concentration 98% 03/10/2025 9 :52 AM EDT Weight 123.8 kg (273 lb) 03/10/2025 9:52 AM EDT Height 188 cm (6' 2 ) 03/10/2025 9:52 AM EDT Body Mass Index 35.05 03/10/2025 9:52 AM EDT Plan of Treatment Health Maintenance [...] 19+ 3-dose series) 2022 Immunization: COVID-19 ( season) 2025 Immunization: Influenza (MyChart) (#1) 2025 Depression Screening 03/10/2026 03/10/2025, 03/17/2024 Immunization: Meningococcal ACWY Completed 06/23/2020 Immunization: Pneumococcal Aged Out N o longer eligible based on patient's age to complete this topic Insurance [employer] Care Teams Packer Denture Relationship Specialty Start Date End Date Stefanie Silva MD [address] [place], [place] [address] PCP - General Neurology 01/17/24
--- OUTSIDE RECORDS SUMMARY | 2025-03-22 10:37 | XMS_ITS | Clinical Summary ---
Author Organization [facility] Address [facility] [place] [address] Care Team Providers Care Creative Strategist Name Role Phone Pavan Yen MD Primary Care Provider [phone] Source Comments [facility] is fully rolled out with thefollowing exceptions:General Clinical Research [facility] Allergies Active Allergy Reactions Criticality Noted [...] needle (disp) (BD HYPODERMIC NEEDLE) 23G X 1-05/28 miscellaneous Use as directed. Attach to syringe [...] s:Epilepsy undetermined as to focal or generalized [place] 10 mg ( 2 sprays) for seizures [...] COVID-19 Vaccine (1 - 2023-2 5 season) 2025 HEPATITIS A IMMUN (OPTIONAL 2-17 YRS) Discontinued [...] patient's age to complete this topic Insurance ANTHMARIAH BLUE NON-TRADITIONAL ANTHEM BLUE NON-TRADITIONAL ANTHEM BLUE NON-TRADITIONAL Care Teams Creative Strategist Relationship Specialty Start Date End Date Pavan Yen MD [address] [place] [address] PCP - General External Medicine 11/25/15
--- OUTSIDE RECORDS SUMMARY | 2025-03-22 10:37 | XMS_ITS | Encounter Summary ---
Author Organization [facility] Address [address] [place] [address] Care Team Providers Care Grain Mill Products Inspector Name Role Phone Stefanie Silva MD Primary [...] release of HIV test results or diagnoses. [id number] Health Encounter Details Date Type Department Care Team (Late st Contact Info) Description 03/12/[address] [facility] Neurology at [facility] Neuroscience [address] [place] [address] Dolores Bowen MD [address] [facility] [place] [address] Social History Tobacco Use Types [...] Telephone Encounter - Magalis Mackey MA - 03/12/2025 2:10 PM EDT Images from the original note were not included. documented in this encounter Plan of Treatment Not on file documented as of this encounter Visit Diagnoses Not on filedocumented in this encounter Care Teams Grain Mill Products Inspector Relationship Specialty Start Date End Date Stefanie Silva MD [address] [place] [address] PCP - General Neurology 01/17/24 documented as of this encounter
--- OUTSIDE RECORDS SUMMARY | 2025-03-22 10:37 | XMS_ITS | Encounter Summary ---
Author Organization [facility] Address [address] [place] [address] Care Team Providers Care Job Press Feeder Name Role Phone Pavan Yen MD Primary Care Provider [phone] Reason for Visit * Reason Onset Date Comments Medication Refill 08/06/2022 Misc. Devices (mucosal atomization device) MISC, naproxen (NAPROSYN) 500 MG tablet Encounter Details Date Type Department Care Team (Late st Contact Info) Description 08/06/2022 Refill [facility] Division of Neurology [address] [place] [address] Dion Levi MD Neurology [address] [place] [address] [address] [place] [address] Medication Refill (Misc. Devices (mucosal [...] with Dion Levi M.D.(office) Last Visit: 02/28/2022; [facility]; DION LEVI; WICHO FU Advised to follow up in: Return in about 6 months (around 08/29/2022). Follow up appointment: No appointment found Note: If patient needs appointment. Please send to JANIE Montes To be filled at: [facility] - [place], [place] - [address] documented in this encounter Plan of Treatment Not on file documented as of this encounter Visit Diagnoses Not on filedocumented in this encounter Care Teams Job Press Feeder Relationship Specialty Start Date End Date Pavan Yen MD [facility] [place] [address] PCP - General External Medicine 11/25/15 documented as of this encounter
--- OUTSIDE RECORDS SUMMARY | 2025-03-22 10:37 | XMS_ITS | Encounter Summary ---
Author Organization [facility] Address [address] [place] [address] Care Team Providers Care Generator Switchboard Operator Name Role Phone Pavan Yen MD Primary Care Provider [phone] Reason for Visit * Reason Comments Medication Refill ibuprofen (MOTRIN) 6 00 MG tablet Encounter Details Date Type Department Care Team (Late st Contact Info) Description 01/09/2017 Refill [facility] Division of Neurology [address] [place] [phone] Jarocho Esposito MD Neurology [address] [place] [address] 2014 [place] [address] Medication Refill (ibuprofen (MOTRIN) 600 [...] Miscellaneous Notes * Telephone Encounter - Mery Kirkland, Welding Machine Operator Plasma Arc - 01/10/2017 8:51 AM EDT Due for a follow up appointment. Medication refill request for: ibuprofen (MOTRIN) 600 MG tablet Medication dose, strength, and quantity verified? yes Last recorded patient weight: Wt Readings from Last 1 Encounters: 06/13/16 : 53.2 kg (74 %, Z= 0.66)* * Growth percentiles are based on CDC 2-20 Years data. Last Visit: 06/13/2016; [facility]; JAROCHO ESPOSITO; WICHO ARRIAZA HEADACHE CR BIOFEEDBACK Advised to follow up in: 3 months Follow up appointment: No appointment found Action: Refill pended to nurse for review. Pharmacy: [facility]O PAR[facility] [address] [address] documented in this encounter Plan of Treatment [...] documented as of this encounter Care Teams Generator Switchboard Operator Relationship Specialty Start Date End Date Pavan Yen MD [address] [place] [address] PCP - General External Medicine 11/25/15 documented as of this encounter
[2025-03-22 10:55] LABS: Bilirubin,Urine Negative (Negative); Color,Urine YELLOW (Yellow); Glucose,Urine (UA) Negative (Negative); Ketones,Urine Negative (Negative); Leukocyte Esterase,Urine Negative (Negative); PH,Urine 6.0 (5.0-8.5); Protein,Urine TRACE (Negative); Specific Gravity, Urine 1.025 (1.005-1.030); Urobilinogen,Urine 0.2 EU/dl (0.2)
[2025-03-22 10:55] LABS: Hematocrit 44.8 % (42.0-52.0); Hemoglobin 15.2 g/dL (14.1-18.0); Immature Granulocytes % 0.2 %; Mean Corpuscular HGB Conc 33.9 g/dL (31.8-35.4); Mean Corpuscular Hemoglobin 30.0 pg (27.0-31.2); Mean Corpuscular Volume 88.5 fl (80-94); Nucleated Red Blood Cells % 0 %; Platelet Count 201 K/mm3 (142-424); Red Blood Count 5.06 M/mm3 (4.60-6.20); Red Cell Distribution Width-SD 41.6 fL; White Blood Count 6.5 K/mm3 (4.8-10.8)
[2025-03-22 11:05] LABS: RBC,Urine Occasional #/hpf (0-3)
[2025-03-22 11:11] LABS: Albumin Level 3.6 g/dl (3.5-5.0); Chloride 102 mmol/L (98-107); Potassium 4.0 mmoL/L (3.5-5.1); Sodium 136 mmol/L (136-145)
[2025-03-22 11:14] LABS: Alanine Aminotransferase 38 U/L (12-78); Albumin/Globulin Ratio 1.0 (1.1-1.8); Alkaline Phosphatase 110 U/L (38-126); Anion Gap 8.0 mEq/L (5-15); Aspartate Amino Transferase 30 U/L (17-59); Bilirubin,Total 0.5 mg/dl (0.2-1.3); Blood Urea Nitrogen 14 mg/dl (9-20); Calcium 9.1 mg/dl (8.4-10.2); Carbon Dioxide 30 mmol/L (22.0-30.0); Creatinine Clearance Estimated 208 mL/min (50-200); Creatinine,Serum 0.90 mg/dl (0.66-1.25); Estimated Glomerular Filt Rate 107 ml/min (>60); GFR (African American) 129 ML/MIN (>60); Globulin 3.7 g/dL (1.3-3.2); Glucose 101 mg/dl (74-100); Lipase 117 U/L (23-300); Total Protein,Serum 7.3 g/dl (6.3-8.2)
--- NOTE | 2025-03-22 11:15 | ECG_ITS ---
APPROVED REPORT Exam: Resting ECG HR:83 bpm ECG Measurements Heart Rate 83 AXES TX 145 P 43 QRSd 89 QRS 48 QT 342 T 6 QTc 382 Conclusion SINUS RHYTHM NONSPECIFIC T-WAVE ABNORMALITY BORDERLINE ECG UNCONFIRMED REPORT Electronically signed by : JUAN MANUEL GAFFNEY, 03/23/2025 06:30:14
[2025-03-22 11:30] LABS: Troponin I < 0.01 ng/ml (0.00-0.034)
[2025-03-22 11:57] LABS: C-Reactive Protein 25.9 mg/L (0-4)
[2025-03-22 12:25] LABS: Hepatitis C Ab Qual. W/ RFX NEGATIVE (Negative)
--- NOTE | 2025-03-22 12:35 | PC.NURSE ---
DR LU AT BEDSIDE TO UPDATE PT AND FAMILY
[2025-03-22 12:53] VITALS: BP 141/81; PULSE 81; RESP 15; TEMP 36.8; O2SAT 100
== END 2025-03-22 12:53 | disposition home or self-care (01) ==
PROVIDERS: Emergency Provider Student in an Organized Health Care Education/Training Program; PCP Nurse Practitioner Family
DX: R10.13 Epigastric pain (principal); R31.9 Hematuria, unspecified; R79.82 Elevated C-reactive protein (CRP)
CPT/HCPCS: 71046; 76705; 80053; 81001; 83605; 83690; 84484; 85025; 86140; 86803; 87389; 93005; 99285

== ENCOUNTER 2025-03-31 10:26 | Outpatient (CLI) | payer BC, SELFPAY ==
--- OUTSIDE RECORDS SUMMARY | 2025-03-31 10:53 | XMS_ITS | Clinical Summary ---
Author Organization Healthcare Address [address] [place] [address] Care Team Providers Care Pattern Scratcher Name Role Phone Javier Ortiz MD Primary Care Provider [phone] Family History Medical History Relation Name Comments [...] of Treatment Not on file Care Teams Pattern Scratcher Relationship Specialty Start Date End Date Javier Ortiz MD [address] [facility] [address] [place] [address] PCP - General 10/07/20
--- OUTSIDE RECORDS SUMMARY | 2025-03-31 10:53 | XMS_ITS | Data Portability ---
Author Organization [place] [facility] [place] [facility] Address [address] [facility] [address] [place] [address] Assessment No assessment recorded. Plan of Treatment Reminders Order Date Submit Date Provider Last Modified By Organization Details Last Modified Time Details Appointments None recorded. Lab unlisted lab - urology custom panel 2022 [facility], [address] [place] [address], [id number], 20:07:33 PTH (parathyro id hormone), intact + calcium, serum or plasma 2022 [facility], [address] [place] [address], [id number], 20:10:09 Referral None recorded. Procedures None recorded. Surgeries None recorded. Imaging CT, abdomen + pelvis, w/o contrast [email or web address] [facility], [address] [place] [address], [phone], 10:48:43 Medication Orders None recorded. Patient TargetsNo targets recorded. Patient Instructions Encounter Date Encounter Id Patient Instructions Last Modified By Organization Details Last Modified Time 03/07/2023 [id number] 24 hour urine collection [email or web address] Not available 03/07/2023 16:35:09 Reason for Referral None Reported. Results Created Date Observation Date Name Description Value Unit Range Abnormal Flag Note LastModifiedBy Organization Detail LastModifiedTime 03/07/20 23 03/07/2023 UROLO GY CUSTO M PANEL glucose 75 mg/dL 74-100 normal Not Available [facility] [address] [place] [address], [phone], 03/07/2023 20:07:33 03/07/2003/07/2023 UROLO GY CUSTO M PANEL blood urea nitrogen 12 mg/dL 6-20 normal Not Available [facility] [address] [place] [address], [phone], 03/07/2023 20:07:33 03/07/20 23 03/07/2023 UROLO GY CUSTO M PANEL creatinine 0.92 mg/dL 0.70-1 .28 normal Not Available [facility] [address] [place] [address], [phone], 03/07/2023 20:07:33 03/07/20 23 03/07/2023 UROLO GY CUSTO M PANEL BUN/creatini ne ratio 13 (calc ) 10-20 normal Not Available [facility] [address] [place] [address], [id number], 03/07/2023 20:07:33 03/07/20 23 03/07/2023 UROLO GY CUSTO M PANEL sodium 144 mmol/ L 136-14 5 normal Not Available [facility] [address] [place] [address], [id number], 03/07/2023 20:07:33 03/07/20 23 03/07/2023 UROLO GY CUSTO M PANEL potassium 4.3 mmol/ L 3.4-5. 0 normal Not Available [facility] [address] [place] [address], [phone], 03/07/2023 20:07:33 03/07/20 23 03/07/2023 UROLO GY CUSTO M PANEL chloride 106 mmol/ L 98-107 normal Not Available [facility] [address] [place] [address], [phone], 03/07/2023 20:07:33 03/07/20 23 03/07/2023 UROLO GY CUSTO M PANEL carbon dioxide 26 mmol/ L 22-31 normal Not Available [facility] [address] [place], [address], 03/07/2023 20:07:33 03/07/20 23 03/07/2023 UROLO GY CUSTO M PANEL anion gap 12 (calc ) 7-25 normal Not Available [facility] [address] [place], [address], 03/07/2023 20:07:33 03/07/20 23 03/07/2023 UROLO GY CUSTO M PANEL calcium 9.7 mg/dL 8.6-10 .2 normal Not Available [facility] [address] [place], [address], 03/07/2023 20:07:33 03/07/20 23 03/07/2023 UROLO GY CUSTO M PANEL phosphorus 3.7 mg/dL 2.5-4. 5 normal Not Available [facility] [address] [place], [address], 03/07/2023 20:07:33 03/07/20 23 03/07/2023 UROLO GY CUSTO M PANEL uric acid 3.8 mg/dL 3.4-7. 0 normal Refer ence range s are based on [facility] norms and do not neces jose alfredo sotelo late with treat ment targe ts. In patie nts with an estab lishe d diagn osis of gout under going Urate Lower ing Thera py (ULT) , the 2011 [facility] Rheum atolo gy Guid pedro s for Manag ement of Gout recom mend a targe t uric acid level of < 6 mg/dL in all patie nts, or lower in certa in circu mstan ish. Arthr itis Care and [facility] Vol 64 No 10, 2011 [facility] of Rheum atolo gy ----- ----- ----- ----- ----- ----- ----- ----- ----- ----- ----- ---- Not Available [facility] [address] [place], [address], 03/07/2023 20:07:33 03/07/20 23 03/07/2023 UROLO GY CUSTO M PANEL GFR 122 >= 60 normal NOT E New calcu latio n for GFR (CKD- EPI 2020) is formu lated witho ut race adjus tment facto rs at the recom menda tion of the Natio nal Kidne y Found ation and Ameri can Socie ty of Nephr ology . This calcu latio n has not been valid ated in pregn ant women . For nakul vann nts refer to https ://cecille inman.hardeep leonard.o hebert/pr rajan hager s/KDO QI/gf r_cal culat orPed Not Available [facility] [address] [place], [address], 03/07/2023 20:07:33 03/07/20 23 03/07/2023 PTH, INTAC T WITH CA PTH, intact 23.0 pg/mL 15.0-6 5.0 normal INTER PRETI VE GUIDE ===== ===== ===== ===== ===== ===== ===== ===== ===== ===== ===== === PTH CALCI UM CONDI TION ===== ===== ===== ===== ===== ===== ===== ===== ===== ===== ===== = Carmela l Carmela l Carmela l Parat hyroi d _ Low or Low Hypop carmel yroid ism Low Carmela l _ Carmela l or High Prima ry Hyper parat hyroi dism High __ High Carmela l or Secon simón Hyper parat hyroi dism Low __ High High Terti brian Hyper parat hyroi dism __ Low or High Non-P carmel yroid Hyper calce citlalli Low Carmela l ===== ===== ===== ===== ===== ===== ===== ===== ===== ===== ===== ==== Not Available [address], [phone], 03/07/2023 20:46:08 03/07/20 23 03/07/2023 PTH, INTAC T WITH CA calcium 10.1 mg/dL 8.6-10 .2 normal Not Available [facility] [address] [place] [address], [phone], 03/07/2023 20:46:08 Result Notes None recorded. Medical Equipment None Reported. Allergies Allergen ID Allergen Name Allergen Category Reaction Reaction Severity Criticality Documentation Date Start Date Code Code System Note Provider Name and Address Organization Details Recorded Time 281435 Product containin g beta adrenergi c receptor antagonis t (product) medicatio n Not available Not available Not available 03/07/2023 24237 009 SNOMED Arielle Mejíaerd [facility] 15:25:59 Medications Name Sig Start Date Stop Date Status Note LastModified by Organization Details LastModified Time Trileptal active Not Available Not Concetta ilable Not Available Vitals Date Recorded Body height Body mass index (BMI) Body mass index (BMI) [Percentile] Per age and sex Body weight Provider Name and Address Organization Details Last Updated DateTime 03/07/2023 195.58 cm 27.3 kg/m2 86 % 546969.2 5 g Arielle Mejíaerd [facility] 03/07/2023 15:25:45 Social History None recorded. Functional Status None recorded. Mental Status None recorded. Family History Nothing Reported. Medical History No medical history recorded. Past Encounters Encounter ID Performer Location Encounter Start Date Encounter Closed Date Diagnosis/Indication Diagnosis SNOMED-CT Code Diagnosis ICD10 Code Diagnosis IMO Codes Diagnosis Note [id number] OLY THORNTON MD [facility] [address] [place] [address] 03/07/2023 14:11:31 03/07/2023 16:53:31 Kidney stone 68905969 N20.0 Health Concerns Section Related Observation LastModified by Organization Detai ls LastModified Time None Recorded Concern Status LastModified by Organization Details LastModified Time None Recorded Advance Directives Directive None Recorded Payers Insurance Date Sequence Insurance Name Policy Number Policy Parks Covered Member ID Parks Member ID Guarantor Name 03/07/2023 1 [place] [id number] Charly Toscano [id number] Isaias Toscano Notes Date Note Type Note Provider Name and Address Organization Details Recorded Time 03/07/2023 text/html 17-year-old gentleman who is having problems with kidney stones. During the past 3 years he has passed multiple stones. His last episode was 2 weeks ago. Currently he is not have any back or abdominal pain. There is no hematuria or dysuria. His mother has had a long history of problems with uric acid stones. We will get a CT scan and begin metabolic work-up OLY THORNTON MD [address] [place], [address], [facility] 03/07/2023 16:35:36
--- OUTSIDE RECORDS SUMMARY | 2025-03-31 10:53 | XMS_ITS | Clinical Summary ---
Author Organization [facility] Address [facility] [place] [address] Care Team Providers Care Liquor Maker Name Role Phone Pavan Yen MD Primary Care Provider [phone] Source Comments [facility] is fully rolled out with thefollowing exceptions:General Clinical Research [facility] Allergies Active Allergy Reactions Criticality Noted Date [...] the midazolam into the nose. 5 Each 1 Active needle (disp) (BD HYPODERMIC NEEDLE) [...] s:Epilepsy undetermined as to focal or generalized [place] 10 mg ( 2 sprays) for seizures [...] BLUE NON-TRADITIONAL ANTHEM BLUE NON-TRADITIONAL Care Teams Liquor Maker Relationship Specialty Start Date End Date Pavan Yen MD [address] [place] [address] PCP - General External Medicine 11/25/15
--- OUTSIDE RECORDS SUMMARY | 2025-03-31 10:53 | XMS_ITS | Encounter Summary ---
Author Organization [facility] Address [address] [place] [address] Care Team Providers Care Senior Instrumentation Engineer Name Role Phone Pavan Yen MD Primary Care Provider [phone] Reason for Visit * Reason Onset Date Comments Medication Refill 08/06/2022 Misc. Devices (mucosal atomization device) MISC, naproxen (NAPROSYN) 500 MG tablet Encounter Details Date Type Department Care Team (Late st Contact Info) Description 08/06/2022 Refill [facility] Division of Neurology [address] [place] [phone] Dion Levi MD Neurology [address] [place] [address] [address] [place] [address] Medication Refill (Misc. Devices (mucosal [...] with Dion Levi M.D.(office) Last Visit: 02/28/2022; [facility]; DION LEVI; WICHO FU Advised to follow up in: Return in about 6 months (around 08/29/2022). Follow up appointment: No appointment found Note: If patient needs appointment. Please send to JANIE Montes To be filled at: [id number] - [place], [place] - [address] documented in this encounter Plan of Treatment Not on file documented as of this encounter Visit Diagnoses Not on filedocumented in this encounter Care Teams Senior Instrumentation Engineer Relationship Specialty Start Date End Date Pavan Yen MD [facility] [place] [address] PCP - General External Medicine 11/25/15 documented as of this encounter
--- OUTSIDE RECORDS SUMMARY | 2025-03-31 10:53 | XMS_ITS | Encounter Summary ---
Author Organization [facility] Address [address] [place] [address] Care Team Providers Care Geographic Information Systems Manager Name Role Phone Pavan Yen MD Primary Care Provider [phone] Reason for Visit * Reason Comments Medication Refill ibuprofen (MOTRIN) 6 00 MG tablet Encounter Details Date Type Department Care Team (Late st Contact Info) Description 01/09/2017 Refill [facility] Division of Neurology [address] [place] [phone] Jarocho Esposito MD Neurology [address] [place] [address] [address] [place] [address] Medication Refill (ibuprofen (MOTRIN) 600 [...] Notes * Telephone Encounter - Mery Kirkland, Citrix Administrator - 01/10/2017 8:51 AM EDT Due for a follow up appointment. Medication refill request for: ibuprofen (MOTRIN) 600 MG tablet Medication dose, strength, and quantity verified? yes Last recorded patient weight: Wt Readings from Last 1 Encounters: 06/13/16 : 53.2 kg (74 %, Z= 0.66)* * Growth percentiles are based on CDC 2-20 Years data. Last Visit: 06/13/2016; [facility]; JAROCHO ESPOSITO; WICHO ARRIAZA HEADACHE CR BIOFEEDBACK Advised to follow up in: 3 months Follow up appointment: No appointment found Action: Refill pended to nurse for review. Pharm[facility] MANOLO PAR[facility] [address] [address] documented in this encounter Plan of Treatment [...] documented as of this encounter Care Teams Geographic Information Systems Manager Relationship Specialty Start Date End Date Pavan Yen MD [address] [place] [address] PCP - General External Medicine 11/25/15 documented as of this encounter
[2025-03-31 12:24] LABS: Albumin Level 4.7 g/dl (3.5-5.0); Anion Gap 12.1 mEq/L (5-15); Blood Urea Nitrogen 15 mg/dl (9-20); Calcium 9.9 mg/dl (8.4-10.2); Carbon Dioxide 27 mmol/L (22.0-30.0); Chloride 105 mmol/L (98-107); Creatinine,Serum 0.90 mg/dl (0.66-1.25); Estimated Glomerular Filt Rate 107 ml/min (>60); GFR (African American) 129 ML/MIN (>60); Glucose 85 mg/dl (74-100); Phosphorous 3.2 mg/dl (2.5-4.5); Potassium 4.1 mmoL/L (3.5-5.1); Sodium 140 mmol/L (136-145)
== END 2025-03-31 23:59 | disposition home or self-care (01) ==
LOC: LAB 10:28
PROVIDERS: PCP Nurse Practitioner Family; Visit Provider Psychiatry & Neurology Neurology
DX: R56.9 Unspecified convulsions (principal)
CPT/HCPCS: 36415; 80069